=== PATIENT | male | born 1980 | race Caucasian/White ===

== ENCOUNTER 2021-02-11 14:30 | Inpatient (IN) | payer MEDICAID ==
[~2021-02-11] VITALS: Ht 182.9 cm; Wt 90.7 kg
[2021-02-11 15:08] LABS: CALC OSMOLALITY 270 mosm/kg (275-300); CALCIUM 8.9 mg/dL (8.5-10.1); CARBON DIOXIDE 25.9 mmol/L (21.0-32.0); CHLORIDE - SERUM 99 mmol/L (98-107); CREATININE - SERUM 0.8 mg/dL (0.6-1.3); GLUCOSE 106 mg/dL (74-106); POTASSIUM - SERUM 3.5 mmol/L (3.5-5.1); SODIUM 136 mmol/L (136-145); UREA NITROGEN 10 mg/dL (7-18); eGFR NON AFRICAN AMERICAN > 90 mL/min (90-120)
[2021-02-11 15:09] LABS: BASOPHILS 0.6 % (0-2); EOSINOPHILS 2.4 % (0-7); HEMATOCRIT 44.9 % (42.0-54.0); HEMOGLOBIN 15.8 g/dL (13.5-17.5); IMMATURE GRANULOCYTES 1.1 % (0-5); LYMPHOCYTES 26.1 % (15-50); MCH 29.4 pg (26.0-34.0); MCHC 35.2 g/dL (31.0-37.0); MCV 83.6 fL (80.0-100.0); MEAN PLATELET VOLUME 9.7 fL (7.4-10.4); MONOCYTES 14.2 % (2-11); NEUTROPHIL ABS# 2.99 10x3/uL (1.78-5.38); NEUTROPHILS 55.6 % (40-80); PLATELET COUNT 184 10x3/uL (130-400); RBC 5.37 10x6/uL (4.20-6.10); RDW 14.6 % (11.5-14.5); WBC 5.4 10x3/uL (4.8-10.8)
[2021-02-11 15:25] LABS: ALKALINE PHOSPHATASE 93 U/L (30-120); CKMB 0.3 U/L (0.0-3.6); CREATINE KINASE 100 UL (21-232); MAGNESIUM - SERUM 2.2 mg/dL (1.8-2.4)
[2021-02-11 15:26] LABS: ALT (SGPT) 2176 U/L (10-68); TROPONIN-I < 0.017 ng/mL (0.000-0.060)
[2021-02-11 16:09] LABS: NITRITE NEGATIVE (NEGATIVE)
[2021-02-11 16:10] LABS: BILIRUBIN 3+ (NEGATIVE); KETONE 3+ mg/dL (NEGATIVE); UROBILINOGEN 4 mg/dL (< 2)
[2021-02-11 16:11] LABS: BACTERIA FEW HPF (NONE SEEN); SQUAMOUS EPITHELIAL 0-5 HPF (0-4)
[2021-02-11 16:50] VITALS: BP 137/85
[2021-02-11 17:10] LABS: UDS - AMPHET POSITIVE QUAL (NEGATIVE); UDS - BARB NEGATIVE QUAL (NEGATIVE); UDS - BENZO NEGATIVE QUAL (NEGATIVE); UDS - COCAINE NEGATIVE QUAL (NEGATIVE); UDS - OPIATE NEGATIVE QUAL (NEGATIVE); UDS - PCP NEGATIVE QUAL (NEGATIVE); UDS - THC POSITIVE QUAL (NEGATIVE)
[2021-02-11 17:14] LABS: APTT 35.3 SECONDS (22.8-39.4); INR 1.83 (0.85-1.17); PROTIME 19.6 SECONDS (11.6-15.0)
[2021-02-11 20:00] VITALS: BP 111/55
[2021-02-12] VITALS (7 sets, daily range): BP systolic 103–117; BP diastolic 61–75; BMI 27.2
[2021-02-12 06:35] LABS: BASOPHILS 0.6 % (0-2); HEMATOCRIT 40.8 % (42.0-54.0); HEMOGLOBIN 14.2 g/dL (13.5-17.5); IMMATURE GRANULOCYTES 1.1 % (0-5); LYMPHOCYTE ABS# 1.28 10x3/uL (1.32-3.57); LYMPHOCYTES 27.3 % (15-50); MCH 29.3 pg (26.0-34.0); MCHC 34.8 g/dL (31.0-37.0); MCV 84.3 fL (80.0-100.0); MEAN PLATELET VOLUME 9.9 fL (7.4-10.4); MONOCYTES 14.1 % (2-11); NEUTROPHIL ABS# 2.53 10x3/uL (1.78-5.38); NEUTROPHILS 53.9 % (40-80); PLATELET COUNT 202 10x3/uL (130-400); RBC 4.84 10x6/uL (4.20-6.10); RDW 14.9 % (11.5-14.5); WBC 4.7 10x3/uL (4.8-10.8)
[2021-02-12 07:11] LABS: ALBUMIN 3.2 g/dL (3.4-5.0); ALKALINE PHOSPHATASE 80 U/L (30-120); BILIRUBIN - TOTAL 6.65 mg/dL (0.2-1.3); CALC OSMOLALITY 272 mosm/kg (275-300); CARBON DIOXIDE 24.9 mmol/L (21.0-32.0); CHLORIDE - SERUM 103 mmol/L (98-107); CREATININE - SERUM 0.8 mg/dL (0.6-1.3); GLUCOSE 102 mg/dL (74-106); POTASSIUM - SERUM 3.5 mmol/L (3.5-5.1); PROTEIN - SERUM 6.5 g/dL (6.4-8.2); SODIUM 137 mmol/L (136-145); UREA NITROGEN 9 mg/dL (7-18); eGFR NON AFRICAN AMERICAN > 90 mL/min (90-120)
[2021-02-12 07:12] LABS: ALT (SGPT) 2151 U/L (10-68)
--- NOTE | 2021-02-12 08:10 | HP ---
PATIENT: HUONG CHIU MEDICAL RECORD: [id number] ACCOUNT: [id number] LOCATION:[id number] : 78 ADMISSION DATE: 02/11/21 PCP: No PCP HISTORY AND PHYSICAL EXAMINATION CHIEF COMPLAINT: Chest pain and generalized malaise. HISTORY OF PRESENT ILLNESS: This is a 40-year-old white male who has no primary care physician. 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 The story is he started having chest pain yesterday, but before that had generalized malaise for several days. He has had intermittent fever, some nausea and vomiting. He has had epigastric abdominal pain. He noticed his eyes became jaundiced today and his urine became darker. He told the ER personnel that he has had a recent contact with hepatitis A. In the ER, his urine had 3+ ketones and 4+ urobilinogen. Urine drug screen was positive for amphetamines and THC. His ammonia level was normal. CBC and BMP were fine. INR elevated at 1.83. Total bilirubin, AST, and ALT were all elevated. He is admitted for hepatitis. PAST MEDICAL HISTORY: He has had kidney stones in the past. States he had a broken jaw in March 2020. PAST SURGICAL HISTORY: He has had procedures to remove kidney stones years ago. DRUG ALLERGIES: None known. HOME MEDICATIONS: He takes no prescription medications. SOCIAL HISTORY: He is single, currently unemployed. HABITS: He smokes he states a half pack of cigarettes a day. He admits to drinking alcohol daily and smokes marijuana daily. He did admit to some methamphetamine use that could have been just as long as 6 weeks ago. FAMILY HISTORY: Father at 61 of a heart attack. Mother is alive with mitral valve prolapse. A brother is alive with aortic valve replacement and possibly coronary artery disease. REVIEW OF SYSTEMS: GENERAL: He denies any major weight changes. HEENT: No particular sinus or allergy problems. RESPIRATORY: No history of asthma, emphysema. CARDIAC: No known history of heart trouble. GASTROINTESTINAL: No history of diarrhea, constipation, or heartburn. GENITOURINARY: History of kidney stones remotely. NEUROLOGIC: No migraines or seizures. PSYCHIATRIC: Denies depression or melancholia. PHYSICAL EXAMINATION: VITAL SIGNS: Temperature 98.1, pulse 68, respirations 18, blood pressure 137/85, O2 sat is 95%. GENERAL: He is awake, alert and does not appear acutely ill at this time. EYES: Jaundiced. HEENT: Grossly within normal limits. EYES: PERRLA, EOMI. Sclerae are icteric. Nose and throat are unremarkable. NECK: Supple. No JVD or bruit. HISTORY AND PHYSICAL [id number] HUONG CHIU HEART: Regular rate and rhythm without murmur. LUNGS: Clear. ABDOMEN: Soft. There is mild tenderness in the epigastric area. No guarding, no rebound, no mass. RECTAL: Not done today. EXTREMITIES: No edema. NEUROLOGIC: He appears intact. LABORATORY DATA: Urinalysis shows sky, slightly cloudy urine, 3+ ketones, 4+ urobilinogen, 0-5 red blood cells and few bacteria. Ammonia level 24. Urine drug screen positive for amphetamines and THC. CBC with a white count of 5400, hemoglobin 15.8, hematocrit 44.9. Basic metabolic panel: Sodium 136, potassium 3.5, chloride 99, CO2 25.9, BUN 10, creatinine 0.8, glucose 106, and calcium 8.9. INR 1.83. Total bilirubin 7.2, AST 1089, and ALT 2176. Troponin less than 0.017. Chest x-ray shows no significant abnormality. CT of abdomen and pelvis with contrast shows diffuse fatty infiltration of hepatic parenchyma, no focal hepatic lesion. Liver is mildly enlarged. Spleen is mildly enlarged. There is a prominent portacaval lymph node measuring 1.3 cm in the short axis. The main portal vein is dilated measuring 2 cm in diameter. Basically, it was felt that he had hepatomegaly with diffuse fatty infiltration and given dilated main portal vein, portal lymphadenopathy, and splenomegaly recommended correlation for chronic liver disease/hepatitis and portal hypertension. ASSESSMENT: This patient has hepatitis of some sort with his elevated liver enzymes. He has hyperbilirubinemia. He has an exposure to hepatitis A and history of methamphetamine use. PLAN: Hepatitis panel is ordered and is pending at this time. We will ask Dr. Sr to see this patient tomorrow. We will give him IV fluids. Other tests or procedures as warranted. We will monitor his liver enzymes and make further recommendations. TRANSINT:[id number] Voice Confirmation ID: [id number] DOCUMENT ID: [id number] GEORGINA WHITLEY MD at 0810 CC: [id number] DICTATION DATE: 02/11/21 2346 [employer] EDUCATIONAL SPECIALIST: 02/12/21 0023 ADM IN [facility] [address] [place] [address]
[2021-02-12 10:12] LABS: HEPATITIS C ANTIBODY <0.1 S/CO RAT (0.0-0.9)
[2021-02-13 06:54] LABS: ALBUMIN 3.2 g/dL (3.4-5.0); ALKALINE PHOSPHATASE 84 U/L (30-120); BILIRUBIN - TOTAL 9.09 mg/dL (0.2-1.3); CALCIUM 7.7 mg/dL (8.5-10.1); CARBON DIOXIDE 25.3 mmol/L (21.0-32.0); CHLORIDE - SERUM 103 mmol/L (98-107); CREATININE - SERUM 0.6 mg/dL (0.6-1.3); GLUCOSE 85 mg/dL (74-106); PROTEIN - SERUM 6.2 g/dL (6.4-8.2); SODIUM 135 mmol/L (136-145); eGFR NON AFRICAN AMERICAN > 90 mL/min (90-120)
[2021-02-13 06:55] LABS: CALC OSMOLALITY 265 mosm/kg (275-300); UREA NITROGEN 5 mg/dL (7-18)
[2021-02-13 06:56] LABS: ALT (SGPT) 2629 U/L (10-68)
[2021-02-13 07:13] LABS: PROTIME 19.6 SECONDS (11.6-15.0)
[2021-02-13 07:14] LABS: INR 1.82 (0.85-1.17)
--- NOTE | 2021-02-13 07:52 | NUR ---
RECEIVED REPORT, PT RESTING COMFORTABLY AT THIS TIME, NO SIGNS OF DISTRESS
[2021-02-13 09:00] VITALS: BP 119/64
[2021-02-13 12:17] VITALS: BP 112/64
[2021-02-13 16:09] VITALS: BP 110/68; BP 153/54
[2021-02-13 20:00] VITALS: BP 117/77
--- NOTE | 2021-02-13 23:04 | NUR ---
PT WAS RESTING IN BED. COMPLAINED OF PAIN IN THE ABD AND WAS GIVEN PRN PAIN MEDICATION. PAIN IMMEDIATELY IMPROVED. ABLE TO ADDRESS WANTS AND NEEDS. NO OTHER DISTRESS NOTED AT THIS TIME. BED IN LOWEST POSITION WITH CALL POWERS LIGHT IN REACH.
[2021-02-14] VITALS: BP 111/73
[2021-02-14 04:00] VITALS: BP 117/74
[2021-02-14 07:10] LABS: ALBUMIN 3.1 g/dL (3.4-5.0); BILIRUBIN - DIRECT 8.06 mg/dL (0.00-0.30); BILIRUBIN - INDIRECT 2.01 mg/dL (0.00-1.00); BILIRUBIN - TOTAL 10.07 mg/dL (0.2-1.3); PROTEIN - SERUM 6.3 g/dL (6.4-8.2)
[2021-02-14 07:29] LABS: INR 1.72 (0.85-1.17); PROTIME 18.7 SECONDS (11.6-15.0)
--- NOTE | 2021-02-14 07:57 | NUR ---
RECIEVED BEDSIDE REPORT. DENIES NEEDS AT THIS TIME. FREE FROM SIGNS OF DISTRESS. BED LOW POSITION, CALL LIGHT IN REACH. WILL CONTINUE TO MONITOR.
[2021-02-14 08:57] VITALS: BP 105/72
[2021-02-14 12:21] VITALS: BP 113/74
[2021-02-14 16:48] VITALS: BP 117/73
[2021-02-14 17:07] VITALS: Ht 182.9 cm; Wt 90.7 kg
--- NOTE | 2021-02-14 18:47 | NUR ---
PATIENT IN BED. DENIES NEEDS AT THIS TIME. BED LOW POSITION, CALL LIGHT IN REACH. WILL CONTINUE TO MONITOR.
[2021-02-14 20:07] VITALS: BP 107/63
--- NOTE | 2021-02-15 00:40 | NUR ---
PT SLEEPING UPON ASSESSMENT. EASY TO AROUSE. NO PAIN NOR DISTRESS AT THIS TIME. ABLE TO MAKE WANTS AND NEEDS KNOWN. BED IN LOW POSITION WITH CALL LIGHT IN REACH.
[2021-02-15 05:25] LABS: INR 1.61 (0.85-1.17); PROTIME 17.7 SECONDS (11.6-15.0)
[2021-02-15 05:46] LABS: BILIRUBIN - DIRECT 9.02 mg/dL (0.00-0.30); BILIRUBIN - INDIRECT 1.78 mg/dL (0.00-1.00); BILIRUBIN - TOTAL 10.8 mg/dL (0.2-1.3); PROTEIN - SERUM 6.4 g/dL (6.4-8.2)
[2021-02-15 06:39] VITALS: BP 109/72
--- NOTE | 2021-02-15 07:46 | NUR ---
0700 BEDSIDE REPORT RECEIVED AWAKE ALERT DISCUSSED PAIN MEDICATION PRN
[2021-02-15 08:38] VITALS: BP 99/68
[2021-02-15 12:43] VITALS: BP 117/70
[2021-02-15 16:59] VITALS: BP 111/78
--- NOTE | 2021-02-15 17:44 | NUR ---
1200 UP TO BATHROOM WITHOUT ASSIST MOOK WELL
--- NOTE | 2021-02-15 17:45 | NUR ---
1730 C/O RIGHT AC IV PLACEMENT STARTED NEW IV WITH 2 GAUGE ANGIOCATH
--- NOTE | 2021-02-15 17:46 | NUR ---
1740 REMOVED IV FROM RIGHT AC
--- NOTE | 2021-02-15 19:00 | NUR ---
BEDSIDE REPORT RECEIVED AND CARE OF PT ASSUMED. PT LYING IN HIGH KHANNA'S POSITION WATCHING TV AT THIS TIME. IV TO LEFT FA PATENT WITH NS INFUSING AT 100 ML/HR. WILL MONITOR [place] FOR NEEDS.
[2021-02-15 20:38] VITALS: BP 100/72
--- NOTE | 2021-02-15 21:01 | NUR ---
HS MEDICATIONS GIVEN. WILL CONTINUE TO MONITOR FOR NEEDS.
[2021-02-16 00:46] VITALS: BP 114/66
[2021-02-16 05:26] VITALS: BP 119/78
--- NOTE | 2021-02-16 07:46 | NUR ---
RECEIVED BEDSIDE REPORT. IN BED, AROUSES TO VOICE. DENIES NEEDS AT THIS TIME. BED LOW POSITION, CALL LIGHT IN REACH. WILL CONTINUE TO MONITOR.
[2021-02-16 08:28] VITALS: BP 113/64
[2021-02-16 12:01] VITALS: BP 111/69
[2021-02-16 16:12] VITALS: BP 123/74
--- NOTE | 2021-02-16 17:48 | NUR ---
IN BED. DENIES NEEDS AT THIS TIME. BED LOW POSITION, CALL LIGHT IN REACH. WILL CONTINUE TO MONITOR.
--- NOTE | 2021-02-16 19:00 | NUR ---
BEDSIDE REPORT RECEIVED AND CARE OF PT ASSUMED. PT LYING IN HIGH KHANNA'S POSITION WATCHING TV. IV TO LEFT FA PATENT WITH NS INFUSING AT 100 ML/HR. WILL MONITOR FOR NEEDS.
--- NOTE | 2021-02-16 19:45 | NUR ---
PT ACCIDENTLY PULLED IV OUT WITH CATHETER TIP INTACT. RE-SITED TO LEFT WRIST USING 20 GUAGE CATHETER IN ONE STICK. IV FLUIDS RE-STARTED PER ORDER.
[2021-02-16 23:34] VITALS: BP 110/74
[2021-02-17 01:35] VITALS: BP 128/75
[2021-02-17 06:19] VITALS: BP 113/64
--- NOTE | 2021-02-17 07:20 | NUR ---
PATIENT REQUESTED PAIN MEDICATION THIS MORNING, STATES PAIN IN LEG IS AT AN 8, ADMINISTERED PAIN MEDICATION WITH NAUSEA MEDICATION. CONTINUE WITH PLAN OF CARE
[2021-02-17 08:56] VITALS: BP 112/70
--- NOTE | 2021-02-17 09:47 | NUR ---
I have reviewed this patient and I concur with the Shift Assessment completed by the Licensed Practical Nurse today this shift.
[2021-02-17 12:50] VITALS: BP 113/73
[2021-02-17 14:21] LABS: INR 1.44 (0.85-1.17); PROTIME 16.3 SECONDS (11.6-15.0)
[2021-02-17 14:25] LABS: ALBUMIN 2.9 g/dL (3.4-5.0); BILIRUBIN - DIRECT 9.12 mg/dL (0.00-0.30); BILIRUBIN - INDIRECT 1.5 mg/dL (0.00-1.00); BILIRUBIN - TOTAL 10.62 mg/dL (0.2-1.3); PROTEIN - SERUM 6.9 g/dL (6.4-8.2)
[2021-02-17 17:29] VITALS: BP 115/76
[2021-02-17 20:00] VITALS: BP 113/64
[2021-02-18] VITALS: BP 93/68
[2021-02-18 04:00] VITALS: BP 121/75
--- NOTE | 2021-02-18 07:26 | NUR ---
PATIENT AWAKE IN BED, NO NEEDS VOICED, CL IN REACH, BED IN LOWEST POSITION. CONTINUE WITH PLAN OF CARE
--- NOTE | 2021-02-18 07:29 | NUR ---
I have reviewed this patient and I concur with the Shift Assessment completed by the Licensed Practical Nurse today this shift.
[2021-02-18] MEDS ORDERED: ZOFRAN4 MG PO (08:36)
[2021-02-18] MEDS ORDERED: ULTRAM50 MG PO (08:37)
--- NOTE | 2021-02-18 09:42 | NUR ---
PATIENT REQUESTED PAIN MEDICATION, STATED PAIN IS GOING UP HIS BACK AND NECK, ADMINISTERED PRN MEDICATION. CONTINUE WITH PLAN OF CARE
[2021-02-18 09:55] VITALS: BP 110/70
--- NOTE | 2021-02-18 10:57 | NUR ---
WENT OVER DC PAPERWORK AND FOLLOW UP APPOINTMENTS WITH PATIENT, ALL QUESTIONS ANSWERED. IV DC WITH CATHETER INTACT NO OTHER NEEDS VOICED AT THIS TIME
--- NOTE | 2021-02-18 15:10 | MORECARE ---
CASE MANAGEMENT DISCHARGE SUMMARY PATIENT: HUONG CHIU UNIT: [id number] ADM DATE: 02/11/21 AGE: 40 : 78 SEX: M ROOM/BED: D.2238 AUTHOR: JENNIE,DOC PHYSICIAN: REFERRING PHYSICIAN: GEORGINA WHITLEY MD DATE OF SERVICE: 02/18/21 Case Management Discharge Planning Summary CT Patient Name: HUONG CHIU Attending MD : GEORGINA POSEY Medical Record: [id number] Encounter : [id number] Facility : [address] [place] [address] Admission Date : 118: Center Discharge Date : 02/18/[address] [place] [address] Date of : DC Plan ID : [id number] Age/Sex/Martia : 40/ M/S Printed on : 02/18/21 15:09 CT DCP Review Details Anticipated D/C: Expected LOS : Case Status : NOTSTART - Initial Reviewe: [id number] Jose Mello Initial Review: 02/11/2021 Planned Disposi: - Final Discharge: - Final Reviewer : : Final Review : DCP [employer] Questions [employer] An[facility] HUONG CHIU MR#: [id number] /Age/Sex/[id number] /40/M /S Attending Physician Name: FRITZ WHITLEY [id number] Patient Account:[id number] [facility] Page -1 of 1 All edits/amendments must be made on the electronic document DICTATION DATE: 02/18/21 1509 FRAME TENDER: PASHA 02/18/21 1509 RPT#: [id number] DC DATE:02/18/21 STATUS: [place] [address] END OF REPORT
== END 2021-02-18 12:24 | disposition home or self-care (01) | DRG 441 ==
LOC: D.ER 14:30 → D.MS 18:52
PROVIDERS: Family Medicine; ADMIT Family Medicine; ATTEND Family Medicine
DX: B15.9 Hepatitis A without hepatic coma (principal); K72.00 Acute and subacute hepatic failure without coma; R17 Unspecified jaundice; R07.9 Chest pain, unspecified; K21.9 Gastro-esophageal reflux disease without esophagitis; Z72.0 Tobacco use